=== PATIENT | male | born 1980 | race Two or more races ===

== ENCOUNTER 2025-03-01 13:35 | Outpatient (AMB) | payer OTHER, SELFPAY ==
--- NOTE | 2025-03-01 13:40 | A.OFFPC_ITS ---
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 Transferring care from unknown. Medical records have not been requested and have not received. 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 Presenting with dizziness, headache, memory loss, knee pain, phlegm production, and concerns about a possible transient ischemic attack. The patient reports experiencing dizziness since an episode a few months ago, which has become more frequent. The patient describes headaches that began after the dizziness started, occurring randomly and sometimes associated with dizziness. The patient experienced an episode of memory loss a few months ago, where he was disoriented and unable to recall events. The patient and his family suspect a minor stroke due to symptoms of facial numbness and dizziness. When he has dizziness his feet will occasionally go numb and he will have 2-3 episodes per week. The dizziness occurs with a headache on the left side of the head with associated vision changes that improve with Advil and resolved after a few hours. He does not have any nausea, vomiting or sensitivity to light or sound with the migraines. The patient reports knee pain, particularly in the right knee, exacerbated by repetitive movements and kneeling at work. The patient experiences phlegm production possibly related to acid reflux, with advice given to avoid eating close to bedtime. 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 1. Little interest or pleasure in doing things: not at all 2. Feeling down, depressed, or hopeless: not at all 3. Trouble falling or staying asleep, or sleeping too much: not at all 4. Feeling tired or having little energy: several days 5. Poor appetite or overeating: several days 6. Feeling bad about yourself - or that you are a failure or have let yourself or your family down: not at all 7. Trouble concentrating on things, such as reading the newspaper or watching television: not at all 8. Moving or speaking so slowly that other people could have noticed. Or the opposite - being so fidgety or restless that you have been moving around a lot more than usual: not at all 9. Thoughts that you would be better off or of hurting yourself in some way: not at all Total score: 2 Depression Screening Interpretation: Negative Depression Screening Done: Yes 31800 - PHQ-9 Billing: Yes Source: Developed by Drs. Salvador Francis, Deloris Cardenas, Rex Kenyon and colleagues, with an educational leodan from [employer]. Thrive Questionnaire Date Thrive assessed: 03/01/25 I am a: Patient What is your living situation today?: I have a steady place to live Within the past 12 months, did the food you bought not last and you didn't have the money to get more?: Never true Within the past 12 months, did you worry whether your food would run out before you got money to buy more?: I choose not to answer this question Do you have trouble paying for medicines?: No Do you have trouble getting transportation to medical appointments?: No Do you have trouble paying your heating and electricity bill?: I choose not to answer this question Do you have trouble taking care of your child, family member or friend?: I choose not to answer this question Do you have trouble with day-to-day activities such as bathing, preparing meals, shopping, managing finances, etc.?: I choose not to answer this question Are you currently unemployed and looking for a job?: I choose not to answer this question Are you interested in more education?: I choose not to answer this question Please select the resources that you would like help with: None Currently or been in a relationship where the following occur: I choose not to answer THRIVE Score: 0 AUDIT C Alcohol Use Questionnaire (AUDIT-C) 1. How often do you have a drink containing alcohol?: Monthly or less 2. How many drinks containing alcohol do you have on a typical day when you are drinking?: 1 or 2 3. How often do you have six or more drinks on one occasion?: Never Total Score: 1 FRIDA-7 AMB Questionnaire FRIDA-7 Date FRIDA - 7 assessed: 03/01/25 Feeling nervous, anxious, or on edge: 0 = Not at all Not being able to stop or control worryin = Not at all Worrying too much about different things: 0 = Not at all Trouble relaxin = Not at all Being so restless that it is hard to sit still: 0 = Not at all Becoming easily annoyed or irritable: 0 = Not at all Feeling afraid as if something awful might happen: 0 = Not at all Total FRIDA-7 score (0-4 normal; 5-9 mild; 10-14 moderate; 15-21 severe): 0 Source: Developed by Drs. Salvador Francis, Deloris Cardenas, Rex Kenyon and colleagues, with an educational leodan from [employer]. FRIDA-7 Assessment Billing FRIDA-7 Assessment Tool: FRIDA-7 Assessment 87156 Review of Systems Const Denies body aches, Denies chills, Denies fever(s), Reports headache(s) and Denies poor appetite Eyes Reports no additional complaints ENT Denies dysphagia, Reports dizziness, Reports headache(s) and Denies odynophagia Card Denies chest pain, Denies syncope, Denies edema, Denies lightheadedness and Denies dyspnea Resp Denies cough and Denies dyspnea GI Denies abdominal pain, Denies dysphagia, Denies nausea, Denies odynophagia and Denies vomiting Reports no additional complaints Musc Reports no additional complaints and Denies abnormal gait Skin/Breast Reports system reviewed and no additional complaints, except as documented Neuro Denies abnormal gait, Reports dizziness, Denies syncope and Reports headache(s) Psych Reports no additional complaints Physical exam (Primary Care) Vital Signs: Last Vital Signs Temp 97.5 F 03/01/25 13:52 Pulse 77 03/01/25 13:52 BP 132/90 H 03/01/25 13:52 Pulse Ox 97 03/01/25 13:52 Oxygen Delivery Method Room Air 03/01/25 13:52 BMI result Body Mass Index 37.3 Tobacco/Smoking Status: Tobacco use Status Tobacco use date assessed 03/01/25 03/01/25 13:57 Patient Tobacco Use Status Never used Tobacco 03/01/25 13:59 e-Cigarette/Vaping Use Never Used 03/01/25 13:59 PHQ-9: PHQ-9 Score PHQ-9: Total score 2 03/01/25 14:10 Depression Screening Interpretation: Negative Thrive Assessment: Date of Thrive Assessment Date Thrive assessed 03/01/25 03/01/25 13:57 Currently or been in a relationship where the following occur: I choose not to answer Const General: cooperative, healthy appearing, comfortable and no acute distress Orientation/consciousness: patient oriented x3 HENMT Head: Yes normocephalic Ears: hearing grossly normal bilaterally General nose exam: Normal external nose present Eyes General: appearance normal, both eyes and all related structures Conjunctivae: conjunctivae normal Pupils: Equal, round and reactive pupils present EOM: No Nystagmus present Neck Neck: Yes full ROM and Yes no lymphadenopathy Resp Effort & Inspection: normal respiratory effort Auscultation: clear to auscultation bilaterally, no crackles, no rales, no rhonchi and no wheezes Cardio Rate: regular rate Rhythm: regular rhythm Skin General skin exam: no rashes or lesions noted Neuro General: patient oriented x3 Cranial nerves: Yes CN's II-XII intact bilaterally, Yes Facial sensation intact/muscles of mastication intact, Yes Equal, round and reactive pupils present, Yes Bilaterally intact EOM present, Yes Normal facial strength present, Yes Ability to bilaterally rotate head present, Yes Ability to bilaterally elevate shoulders present and No Nystagmus present Gait exam (Neuro): Normal gait present Motor exam (neuro): 5/5 motor strength present throughout Coordination: [id number]-gw-[id number] test normal Extrem General: Yes normal to inspection, Yes full ROM and No edema Psych Affect: normal affect Attitude: cooperative Insight: Good insight present (Psych) Judgement: Good judgement present (Psych) Coding Level of Care Code New Pt Level 4 (56625) Diagnoses Dizziness R42 Migraine G43.909 Right knee pain M25.561 GERD (gastroesophageal reflux disease) K21.9 Additional Codes FRIDA-7 Assessment Billing - FRIDA-7 Assessment Tool: FRIDA-7 Assessment 21592 ([id number]) PHQ-9 - 72265 - PHQ-9 Billing: Yes ([id number]) Assessment & Plan Assessment & Plan (1) Dizziness: Code(s): R42 - Dizziness and giddiness Category: Medical Plan: The plan includes ordering blood work to assess potential causes of dizziness, including cholesterol and blood sugar levels. A CAT scan of the head is also planned to rule out any neurological causes. (2) Migraine: Code(s): G43.909 - Migraine, unspecified, not intractable, without status migrainosus Category: Medical Plan: Headaches will be evaluated through blood work and imaging. The patient is advised to monitor for any associated symptoms such as weakness or vision changes. CT of the head was ordered as well. No neurological deficits noted on exam today (3) Right knee pain: Code(s): M25.561 - Pain in right knee Category: Medical Plan: Knee pain management includes the use of knee pads during work and considering physical therapy. An x-ray may be considered if symptoms persist. Declines PT or XR today (4) GERD (gastroesophageal reflux disease): Code(s): K21.9 - Gastro-esophageal reflux disease without esophagitis Category: Medical Plan: Acid reflux management includes lifestyle modifications such as avoiding late meals and elevating the head during sleep. Further evaluation may be needed if symptoms persist. Plan This note was constructed using voice recognition software. While every effort has been made to ensure accuracy and production line worker, still areas may have been included sometimes these areas may affect the content or meeting of the given symptoms. Total time spent caring for the patient today was 30 minutes. This includes time spent before the visit reviewing the chart, time spent during the visit, and time spent after the visit and documentation. Patient was informed and verbally consented to the use of an ambient scribe for clinic note documentation during this visit. Orders: Orders PSA, Ultra Sensitive 03/01/25 Z12.5 - Encounter for screening for malignant neoplasm of prostate TSH reflex Free T4 03/01/25 Z13.29 - Encounter for screening for other suspected endocrine disorder Comprehensive Met. Panel 03/01/25 Z13.1 - Encounter for screening for diabetes mellitus Complete Blood Count Auto Diff 03/01/25 Z00.00 - Encounter for general adult medical examination without abnormal findings, Z13.0 - Encounter for screening for diseases of the blood and blood-forming organs and certain disorders involving the immune mechanism UA CC w/rflx Micro + Cult 03/01/25 R35.89 - Other polyuria CT head/brain wo IV con 03/01/25 G43.909 - Migraine, unspecified, not intractable, without status migrainosus, R42 - Dizziness and giddiness Vitamin B12 and Folate 03/01/25 Z13.21 - Encounter for screening for nutritional disorder Vitamin D 25-OH Total 03/01/25 Z13.21 - Encounter for screening for nutritional disorder Lipid Panel 03/01/25 Z13.220 - Encounter for screening for lipoid disorders
[2025-03-01 13:52] VITALS: BP 132/90; PULSE 77; TEMP 36.4; O2SAT 97; BMI 37.3
--- OUTSIDE RECORDS SUMMARY | 2025-03-01 16:42 | XMS_ITS | Clinical Summary ---
Author Organization [facility] Address [address] [place] [address] Care Team Providers Care Tile Decorator Name Role Phone Cici Maddox MD Primary Care Provider Surgical History Surgery Date Site/Laterality Comments OTHER SURGICAL HISTORY 2007 PROCEDURE: DE EXCISION PILONIDAL CYST/SINUS COMPLICATED Family History Medical History Relation Name Comments Hypertension Mother Kidney failure Mother Relation Name Status Comments Brother Alive Father Alive Mother Alive Sister Alive Social History Tobacco Use Types Packs/Day Years Used Date Smoking Tobacco: Never Smokeless Tobacco: Never Sex and Gender Information Value Date Recorded Sex Assigned at Not on file Legal Sex Male 11:37 PM EST Gender Identity Not on file Sexual Orientation Not on file Obstetrics History Plan of Treatment Health Maintenance Due Date Last Done Comments DTaP,Tdap,and Td Vaccines (1 - Tdap) 2001 Hepatitis B Vaccines (1 of 3 - 19+ 3-dose series) 2001 Cholesterol Screening (Lipid Panel) 04/03/2024 HIV Screening 04/03/2024 Hepatitis C Screening 04/03/2024 Social Influencers of Health Screening 04/03/2024 Depression Screening 06/09/2024 COVID-19 Vaccine (2023-2 5 season) 2025 Influenza Vaccine (#1) 2025 HIB Vaccines Aged Out No longer eligi ble based on patient's age to complete this topic HPV Vaccines Aged Out No longer eligi ble based on patient's age to complete this topic Hepatitis A Vaccines Aged Out No long er eligible based on patient's age to complete this topic IPV Vaccines Aged Out No longer eligi ble based on patient's age to complete this topic MMR Vaccines Aged Out No longer eligi ble based on patient's age to complete this topic Meningococcal ACWY Vaccine Aged Out N o longer eligible based on patient's age to complete this topic Meningococcal B Vaccine Aged Out No l onger eligible based on patient's age to complete this topic Pneumococcal Vaccine: Pediat rics (0 to 5 Years) and At-Risk Patients (6 to 49 Years) Aged Out No longer eligible b ased on patient's age to complete this topic RSV Immunization Patients Un shobha 20 months Aged Out No longer eligible b ased on patient's age to complete this topic Varicella Vaccines Aged Out No longer eligible based on patient's age to complete this topic Care Teams Tile Decorator Relationship Specialty Start Date End Date Cici Maddox MD [address] [place] [address] PCP - General Internal Medicine 10/23/16
== END 2025-03-01 14:43 | disposition home or self-care (01) ==
LOC: HO.HMCH 13:36
PROVIDERS: PCP Internal Medicine
DX: R42 Dizziness and giddiness (principal); G43.909 Migraine, unspecified, not intractable, without status migrainosus; M25.561 Pain in right knee; K21.9 Gastro-esophageal reflux disease without esophagitis

== ENCOUNTER → 2025-03-01 13:35 | Outpatient (BNVA) | payer OTHER, SELFPAY | PROVIDERS: PCP Internal Medicine | DX: K21.9 Gastro-esophageal reflux disease without esophagitis (principal); R42 Dizziness and giddiness; M25.561 Pain in right knee; R35.89 Other polyuria; G43.909 Migraine, unspecified, not intractable, without status migrainosus | CPT/HCPCS: 96127 ==

== ENCOUNTER 2025-03-07 11:20 | Outpatient (REF) | payer OTHER, SELFPAY ==
[2025-03-07 11:45] LABS: MANUAL DIFF FLAG NO
[2025-03-07 12:31] LABS: Hematocrit 45.7 % (42.0-52.0); Hemoglobin 14.9 g/dl (14.0-18.0); Imm Gran Abs Auto 0.02 X10*3/uL (0.00-0.03); Imm Gran Pct Auto 0.2 % (0.0-0.4); Lymphocytes Absolute Auto 3.7 X10*3/uL (1.2-4.9); Mean Corpuscular HGB Conc 32.6 g/dl (31.0-36.0); Mean Corpuscular Hemoglobin 29.0 pg (27.0-33.0); Mean Corpuscular Volume 89.1 fL (80.0-98.0); NRBC Abs Auto 0.000 X10*3/uL (0.0-0.012); NRBC Pct Auto 0.0 /100WBC (0.0-0.2); Platelet Count 284 X10*3/uL (160-400); Red Blood Count 5.13 X10*6/uL (4.60-5.80); White Blood Count 8.5 X10*3/uL (4.8-10.8)
[2025-03-07 13:08] LABS: Alanine Aminotransferase 24 U/L (0-40); Albumin Level 4.7 g/dL (3.5-5.0); Alkaline Phosphatase 64 U/L (39-117); Anion Gap 10 (12-20); Aspartate Amino Transferase 31 U/L (5-37); Blood Urea Nitrogen 19 mg/dL (9-16); Calcium 9.2 mg/dL (8.4-10.2); Carbon Dioxide 27 mmol/L (22-29); Chloride 110 mmol/L (96-108); Cholesterol 197 mg/dL (<200); Estimated Glomerular Filt Rate > 60; HDL Cholesterol 35 mg/dL (>40); Potassium 4.3 mmol/L (3.3-5.1); Sodium 143 mmol/L (135-145); Total Protein 7.9 g/dL (6.5-8.0); Triglycerides 164 mg/dL (<150)
[2025-03-07 13:33] LABS: Folate 15.0 ng/mL (> or = 4.0); Vitamin B12 295 pg/mL (200-900)
[2025-03-11 19:47] LABS: PSA, Ultra Sensitive 0.49 ng/mL
== END 2025-03-07 11:21 | disposition home or self-care (01) ==
LOC: HO.LAB 11:20
DX: Z00.00 Encounter for general adult medical examination without abnormal findings (principal); Z12.5 Encounter for screening for malignant neoplasm of prostate; Z13.1 Encounter for screening for diabetes mellitus; Z13.0 Encounter for screening for diseases of the blood and blood-forming organs and certain disorders involving the immune mechanism; Z13.21 Encounter for screening for nutritional disorder; Z13.220 Encounter for screening for lipoid disorders; Z13.29 Encounter for screening for other suspected endocrine disorder; Z13.6 Encounter for screening for cardiovascular disorders
CPT/HCPCS: 36415; 80053; 80061; 82306; 82607; 82746; 84153; 84443; 85025

== ENCOUNTER 2025-03-12 09:32 | Outpatient (REF) | payer OTHER, SELFPAY ==
--- OUTSIDE RECORDS SUMMARY | 2025-03-12 09:35 | XMS_ITS | Clinical Summary ---
Author Organization [facility] Address [address] [place] [address] Care Team Providers Care Health Education Director Name Role Phone Cici Maddox MD Primary Care Provider Surgical History Surgery Date Site/Laterality Comments OTHER SURGICAL HISTORY 2007 PROCEDURE: [place] EXCISION PILONIDAL CYST/SINUS COMPLICATED Family History Medical [...] of 3 - 19+ 3-dose series) 2001 HPV Vaccines (1 - 3-dose SCD M series) 2009 Cholesterol Screening (Lipid Panel) 04/03/2024 HIV Screening 04/03/2024 Hepatitis C Screening 04/03/2024 Social Influencers of Health Screening 04/03/2024 Depression Screening 06/09/2024 COVID-19 Vaccine ( - 2023-2 5 season) 2025 Influenza Vaccine (#1) 2025 RSV Immunization Adult Patie nts (1 - 1-dose 75+ series) 2057 HIB Vaccines Aged Out No longer eligi [...] age to complete this topic Care Teams Health Education Director Relationship Specialty Start Date End Date Cici Maddox MD [address] [place] [address] PCP - General Internal Medicine 10/23/16
--- OUTSIDE RECORDS SUMMARY | 2025-03-12 09:35 | XMS_ITS | Data Portability ---
Author Organization [place] [facility], [facility] Address [address] [place] [id number] Assessment Encounter Date Assessment Date Assessment LastModified by Organization Details LastModified Time 01/16/2024 01/16/2024 Patient was diagnosed with right-sided peritonsillar abscess on Friday at the [facility] ER. He improved with medical management and on his exam today there is no evidence of abscess with a symmetric soft palate and symmetric tonsils with no fullness. His neck has tenderness in right level 2 with no fluctuance or significant adenopathy. Encouraged him to stay well-hydrated and use pain medication as needed and complete his antibiotics [email or web address] Not available 01/16/2024 14:26:09 Plan of Treatment Reminders Order Date Submit Date Provider Last Modified By Organization Details Last Modified Time Details Appointments None record ed. Lab None record ed. Referral None record ed. Procedures None record ed. Surgeries None record ed. Imaging None record ed. Medication Orders None record ed. Patient TargetsNo targets recorded. Patient InstructionsNo instructions recorded. Reason for Referral None Reported. Problems Name Problem SNOMED Code Status Onset Date Resolution Date Notes Provider Name and Address Organization Details Recorded Time Acute tonsillitis [id number] Active 024 JEFF MULLER MD [address] [facility] [address], [place], [address] [place] [facility] 14:24:32 Problem Notes None recorded. Medical Equipment None Reported. Allergies No known drug allergies Medications Name Sig Start Date Stop Date Status Note LastModified by Organization Details LastModified Time Lidocaine Viscous 2 % mucosal solution TAKE 15 ML (MUCOUS MEMBRAN E) 2 TIMES PER DAY (PAIN) FOR 7 DAYS 01/15 completed Not Available Not Available Not Available pantoprazole 20 mg tablet,delaye d release active Not Available Not Available No t Available ibuprofen 600 mg tablet TAKE 1 TABLET BY MOUTH FOUR TIMES A DAY FOR 7 DAYS active Not Available Not Available No t Available amoxicillin 875 mg-potassium clavulanate 125 mg tablet active Not Available Not Availabl e Not Available Vitals Date Recorded Body height Body mass index (BMI) Body weight Provider Name and Address Organization Details Last Updated DateTime 01/16/2024 172.72 cm 36.9 kg/m2 023906.95 g Aysha Cleveland [place] - [facility] 01/16/2024 14:07:14 Social History None recorded. Functional Status None recorded. Mental Status None recorded. Family History Nothing Reported. Medical History No medical history recorded. Past Encounters Encounter ID Performer Location Encounter Start Date Encounter Closed Date Diagnosis/Indication Diagnosis SNOMED-CT Code Diagnosis ICD10 Code Diagnosis IMO Codes Diagnosis Note [id number] JEFF MULLER MD [facility] [address] [address] 01/16/2024 13:23:02 01/16/2024 14:32:37 Acute tonsillitis 92945679 J03.90 Health Concerns Section Related Observation LastModified by Organization Detai ls LastModified Time None Recorded Concern Status LastModified by Organization Details LastModified Time None Recorded Advance Directives Directive None Recorded Payers Insurance Date Sequence Insurance Name Policy Number Policy Herrmann Covered Member ID Herrmann Member ID Guarantor Name 01/16/2024 1 [facility] [id number] Sung Maharaj [id number] Sung Maharaj Notes Date Note Type Note Provider Name and Address Organization Details Recorded Time 01/16/2024 text/html ROS as noted in the HPI Sore throat right sideonset in urgent care Friday and dx with pharyngitis 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
[2025-03-12 09:42] LABS: Appearance Urine Clear; Glucose Urine UA Negative (Negative); PH 5.5 (5.0-9.0); Specific Gravity - Urine 1.025 (1.005-1.025)
== END 2025-03-12 09:33 | disposition home or self-care (01) ==
LOC: HO.LNP 09:32
DX: R35.89 Other polyuria (principal)
CPT/HCPCS: 81003

== ENCOUNTER 2025-05-20 09:04 | Outpatient (REF) | payer OTHER, SELFPAY ==
--- NOTE | ~2025-05-20 | CT_ITS ---
EXAMINATION: CT HEAD WITHOUT CONTRAST CLINICAL INFORMATION: R42 - Dizziness and giddiness COMPARISON: None available. TECHNIQUE: Contiguous axial imaging was performed from the skull base to vertex without intravenous administration of contrast. This CT examination was performed using dose optimization techniques as appropriate, variously including the following: *Automated exposure control *Adjustment of mA and/or kV according to patient size (this includes techniques or standardized protocols for targeted exams where dose is matched to indication/reason for exam; i.e. extremities or head) *Use of iterative reconstruction technique DLP: 1000 mGy-cm FINDINGS: 1 mm metallic foreign body within the right lateral forehead/superior preseptal periorbital. 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 No acute fracture in the bony calvarium. No acute intracranial hemorrhage, mass effect, midline shift, hydrocephalus or herniation. Nixon-white matter differentiation is normal. Posterior cranial fossa contents demonstrated no gross hemorrhage or mass effect. Normal position of the cerebellar tonsils. Sellar/percent region to straighten CSF prominence suggesting diaphragmatic sella insufficiency. No air-fluid levels in the paranasal sinuses. Tympanic cavities are well aerated. Poor pneumatization right mastoid. CT/CT head/brain wo IV con IMPRESSION: No acute or structural brain abnormality. 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 1 mm metallic foreign body in the soft tissues superior right periorbital Electronically signed by: Mandeep Perez MD 05/20/2025 10:00 AM [facility]
== END 2025-05-20 09:05 | disposition home or self-care (01) ==
LOC: HO.CT 09:04
DX: R42 Dizziness and giddiness (principal); G43.909 Migraine, unspecified, not intractable, without status migrainosus
CPT/HCPCS: 70450

== ENCOUNTER → 2025-05-20 09:11 | Outpatient (BNV) | payer OTHER, SELFPAY | PROVIDERS: Visit Provider Radiology Diagnostic Radiology | DX: S00.251A Superficial foreign body of right eyelid and periocular area, initial encounter (principal) | CPT/HCPCS: 70450 ==

== ENCOUNTER 2025-05-31 13:56 | Outpatient (AMB) | payer OTHER, SELFPAY ==
--- NOTE | 2025-05-31 14:07 | MHC.PC.OV ---
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 Presenting for follow-up to review diagnostic results and for management of migraines. He reports a history of migraines, which currently occur about once a week. He had a prior episode of dizziness and forgetfulness, but has not had any recurrence in the last three months. A recent CT scan revealed an old traumatic deformity from a past accident as a teenager, as well as a 1 mm metallic foreign body in the soft tissues superior to the right eye. The CT scan of the brain was otherwise unremarkable and did not show evidence of a previous stroke. He reports that his knee pain has not been bad, and his acid reflux is controlled, only occurring with certain foods or when eating late. [facility] Surgical History History of cystostomy Family History Mother Kidney disease Social History Housing: House Alcohol intake: current Alcohol intake frequency: a few times a month Patient Tobacco Use Status: Never used Tobacco e-Cigarette/Vaping Use: Never Used Second Hand Smoke Exposure: No service: No Current occupational status: employed Current occupation: [employer] T[employer] Cognitive needs: No Hearing needs: No Vision needs: No Questionnaire Thrive Questionnaire Date Thrive assessed: 03/01/25 I am a: Patient What is your living situation today?: I have a steady place to live Within the past 12 months, did the food you bought not last and you didn't have the money to get more?: Never true Within the past 12 months, did you worry whether your food would run out before you got money to buy more?: I choose not to answer this question Do you have trouble paying for medicines?: No Do you have trouble getting transportation to medical appointments?: No Do you have trouble paying your heating and electricity bill?: I choose not to answer this question Do you have trouble taking care of your child, family member or friend?: I choose not to answer this question Do you have trouble with day-to-day activities such as bathing, preparing meals, shopping, managing finances, etc.?: I choose not to answer this question Are you currently unemployed and looking for a job?: I choose not to answer this question Are you interested in more education?: I choose not to answer this question Please select the resources that you would like help with: None Currently or been in a relationship where the following occur: I choose not to answer THRIVE Score: 0 FRIDA-7 AMB Questionnaire FRIDA-7 Date FRIDA - 7 assessed: 03/01/25 Source: Developed by Drs. Salvador Francis, Deloris Cardenas, Rex Kenyon and colleagues, with an educational leodan from [employer]. Review of Systems Const Denies body aches, Denies chills, Denies fever(s), Denies headache(s) and Denies poor appetite Eyes Reports no additional complaints ENT Denies dizziness and Denies headache(s) Card Denies chest pain, Denies syncope, Denies edema, Denies irregular heart rhythm, Denies lightheadedness and Denies dyspnea Resp Denies cough and Denies dyspnea GI Denies abdominal pain, Denies constipation, Denies diarrhea, Denies nausea and Denies vomiting Reports no additional complaints Musc Reports no additional complaints and Denies abnormal gait Skin/Breast Reports system reviewed and no additional complaints, except as documented Neuro Denies abnormal gait, Denies dizziness, Denies syncope and Denies headache(s) Psych Reports no additional complaints Physical exam (Primary Care) Vital Signs: Last Vital Signs Temp 97.3 F 05/31/25 14:08 Pulse 73 05/31/25 14:08 BP 132/70 05/31/25 14:08 Pulse Ox 94 05/31/25 14:08 Oxygen Delivery Method Room Air 05/31/25 14:08 BMI result Body Mass Index 37.6 Tobacco/Smoking Status: Tobacco use Status Tobacco use date assessed 05/31/25 05/31/25 14:13 Patient Tobacco Use Status Never used Tobacco 05/31/25 14:13 e-Cigarette/Vaping Use Never Used 05/31/25 14:13 Thrive Assessment: Date of Thrive Assessment Date Thrive assessed 03/01/25 05/31/25 14:13 Currently or been in a relationship where the following occur: I choose not to answer Const General: cooperative, healthy appearing, comfortable and no acute distress Orientation/consciousness: patient oriented x3 HENMT Head: Yes normocephalic Ears: hearing grossly normal bilaterally General nose exam: Normal external nose present Eyes General: appearance normal, both eyes and all related structures Conjunctivae: conjunctivae normal Neck Neck: Yes full ROM and Yes no lymphadenopathy Resp Effort & Inspection: normal respiratory effort Auscultation: clear to auscultation bilaterally, no crackles, no rales, no rhonchi and no wheezes Cardio Rate: regular rate Rhythm: regular rhythm Skin General skin exam: no rashes or lesions noted Neuro General: patient oriented x3 Gait exam (Neuro): Normal gait present Extrem General: Yes normal to inspection, Yes full ROM and No edema Psych Affect: normal affect Attitude: cooperative Insight: Good insight present (Psych) Judgement: Good judgement present (Psych) Coding Level of Care Code Est Pt Level 3 (65635) Diagnoses GERD (gastroesophageal reflux disease) K21.9 Migraine G43.909 Dizziness R42 Right knee pain M25.561 Foreign body (FB) in soft tissue M79.5 Assessment & Plan Assessment & Plan (1) GERD (gastroesophageal reflux disease): Code(s): K21.9 - Gastro-esophageal reflux disease without esophagitis Category: Medical Plan: Avoid trigger foods such as citrus, tomato products, soda, caffeine, spicy foods and other foods that may be irritating to your stomach. Avoid laying flat 3-4 hours after eating and elevate the head of the bed 30 degrees to prevent acid from moving into the esophagus. (2) Migraine: Code(s): G43.909 - Migraine, unspecified, not intractable, without status migrainosus Category: Medical Plan: The patient experiences migraines approximately once a week. His vitamin B12 level is on the lower end of normal, which can sometimes be associated with migraines. The plan is to start a vitamin B12 supplement. He will also be prescribed sumatriptan for as-needed use to abort migraine headaches, with instructions to take it at the first sign of a migraine. He was counseled that a second dose may be taken after two hours if symptoms persist, but that the medication is less effective the longer the migraine has been present. A note will be provided for his employer regarding the use of sumatriptan. Patient education on non-pharmacological migraine prevention strategies was provided. (3) Dizziness: Code(s): R42 - Dizziness and giddiness Category: Medical Plan: Resolved at this time he will continue to monitor. (4) Right knee pain: Code(s): M25.561 - Pain in right knee Category: Medical Plan: Resolved at this time (5) Foreign body (FB) in soft tissue: Code(s): M79.5 - Residual foreign body in soft tissue Category: Medical Plan: A recent CT scan identified a 1 mm metallic foreign body in the soft tissues superior to the patient's right eye, which contraindicates MRI. A referral will be made to an maintenance and engineering manager for evaluation and to discuss potential removal. The patient was informed about the risks, including infection and the inability to undergo an MRI while the foreign body is present. Plan This note was constructed using voice recognition software. While every effort has been made to ensure accuracy and care rep, still areas may have been included sometimes these areas may affect the content or meeting of the given symptoms. Total time spent caring for the patient today was 20 minutes. This includes time spent before the visit reviewing the chart, time spent during the visit, and time spent after the visit and documentation. Patient was informed and verbally consented to the use of an ambient scribe for clinic note documentation during this visit. Orders: Referrals Ophthalmology Referral M79.5 - Residual foreign body in soft tissue Medications: New mecobalamin (vitamin B12) 1,000 mcg PO DAILY 90 tabs 0RF sumatriptan succinate take 1 tab at onset of headache; if no relief may repeat 1 tab after at least 2 hrs; max = 4 tabs/24 hr PO 14 tabs 0RF
[2025-05-31 14:08] VITALS: BP 132/70; PULSE 73; TEMP 36.3; O2SAT 94; BMI 37.6
--- OUTSIDE RECORDS SUMMARY | 2025-05-31 15:12 | XMS_ITS | Clinical Summary ---
Author Organization [facility] Address [address] [place] [address] Care Team Providers Care Director Of Casework Department Name Role Phone Cici Maddox MD Primary Care Provider Surgical History Surgery Date Site/Laterality Comments OTHER SURGICAL HISTORY 2007 PROCEDURE: NE EXCISION PILONIDAL CYST/SINUS COMPLICATED Family History Medical [...] on file Sexual Orientation Not on file Plan of Treatment Health Maintenance Due Date Last Done Comments DTaP,Tdap,and Td Vaccines (1 - Tdap) 2001 Hepatitis B Vaccines (1 of 3 - 19+ 3-dose series) 2001 HPV Vaccines (1 - 3-dose SCD M series) 2009 Cholesterol Screening (Lipid Panel) 04/03/2024 HIV Screening 04/03/2024 Hepatitis C Screening 04/03/2024 Social Influencers of Health Screening 04/03/2024 Depression Screening 06/09/2024 COVID-19 Vaccine (1 - 2024-2 6 season) 2025 Influenza Vaccine (#1) 2025 RSV [...] age to complete this topic Care Teams Director Of Casework Department Relationship Specialty Start Date End Date Cici Maddox MD [address] [place] [address] PCP - General Internal Medicine 10/23/16
--- OUTSIDE RECORDS SUMMARY | 2025-05-31 15:12 | XMS_ITS | Data Portability ---
Author Organization [place] - [facility], Allergy Address [address] [place] [id number] Assessment Encounter Date Assessment Date Assessment LastModified by Organization Details LastModified Time 01/16/2024 01/16/2024 Patient was diagnosed with right-sided peritonsillar abscess on Friday at the [facility] ER. He improved with medical management and [...] Address Organization Details Recorded Time Acute tonsillitis 10223329 Active 024 JEFF MULLER MD [address] [facility] [address], [place], [address] [place] [facility] 14:24:32 Problem Notes None recorded. Medical [...] Updated DateTime 01/16/2024 172.72 cm 36.9 kg/m2 976548.95 g Aysha Cleveland [place] - [facility] 01/16/2024 14:07:14 Social History None recorded. Functional Status None recorded. Mental Status None recorded. Family History Nothing Reported. Medical History No medical history recorded. Past Encounters Encounter ID Performer Location Encounter Start Date Encounter Closed Date Diagnosis/Indication Diagnosis SNOMED-CT Code Diagnosis ICD10 Code Diagnosis IMO Codes Diagnosis Note [id number] JEFF MULLER MD [facility] [address] [phone] 01/16/2024 13:23:02 01/16/2024 14:32:37 Acute tonsillitis 29258257 J03.90 Health Concerns Section Related Observation LastModified by Organization Detai ls LastModified Time None Recorded Concern Status LastModified by Organization Details LastModified Time None Recorded Advance Directives Directive None Recorded Payers Insurance Date Sequence Insurance Name Policy Number Policy Herrmann Covered Member ID Herrmann Member ID Guarantor Name 01/16/2024 1 [facility] [id number] Sung Maharaj [id number] Sung Maharaj Notes Date Note Type Note Provider Name and Address Organization Details Recorded Time 01/16/2024 text/html ROS as noted in the HPI Sore throat right sideonset in urgent care Friday and dx with pharyngitis and [facility] 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
== END 2025-05-31 14:41 | disposition home or self-care (01) ==
LOC: HO.HMCH 13:57
PROVIDERS: PCP Internal Medicine
DX: K21.9 Gastro-esophageal reflux disease without esophagitis (principal); G43.909 Migraine, unspecified, not intractable, without status migrainosus; R42 Dizziness and giddiness; M25.561 Pain in right knee; M79.5 Residual foreign body in soft tissue